=== PATIENT | male | born 1990 | race Caucasian/White ===

== ENCOUNTER 2019-05-02 03:30 | Emergency (ER) | payer BC ==
[~2019-05-02] VITALS: Ht 177.8 cm; Wt 86.2 kg
--- NOTE | 2019-05-02 03:30 | NUR ---
PT BIB [facility], PREBOOK. TAKEN TO BED 6
[2019-05-02 03:32] VITALS: BP 123/89
--- NOTE | 2019-05-02 03:35 | NUR ---
Dr. Brown examining patient.
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
--- NOTE | 2019-05-02 03:40 | NUR ---
PT BIB [facility] OFFICER ULISES MCCARTY NUMBER [id number].
[2019-05-02 03:42] VITALS: BP 123/89
--- NOTE | 2019-05-02 03:43 | NUR ---
PATIENT BIB [facility]. PATIENT EXAMINED BY DR. ABRAMS. PATIENT MEDICALLY CLEARED AND RELEASED IN CUSTODY IN STABLE CONDITION. ORIGINAL PRE-BOOK FORM GIVEN TO [facility] OFFICER.
== END 2019-05-02 03:43 ==
LOC: MED 03:30
DX: Z00.00 Encounter for general adult medical examination without abnormal findings (principal); I10 Essential (primary) hypertension; V89.2XXA Person injured in unspecified motor-vehicle accident, traffic, initial encounter; Y93.89 Activity, other specified; Y92.410 Unspecified street and highway as the place of occurrence of the external cause; Y99.8 Other external cause status
CPT/HCPCS: 99283